=== PATIENT | male | born 1970 | race Caucasian/White ===

== ENCOUNTER 2019-07-08 05:39 | Outpatient (RCR) | payer BC ==
[~2019-07-08] VITALS: Ht 167.7 cm; Wt 54.5 kg
== END 2019-07-08 15:56 | disposition home or self-care (01) ==
LOC: PREOP 05:39
PROVIDERS: ATTEND Urology
DX: Z01.818 Encounter for other preprocedural examination (principal)

== ENCOUNTER 2019-07-14 07:41 | Day surgery (SDC) | payer BC ==
[2019-07-14] VITALS (17 sets, daily range): BP systolic 120–202; BP diastolic 68–125
[~2019-07-14] VITALS: Ht 167.7 cm; Wt 54.4 kg
--- NOTE | 2019-07-14 06:58 | Progress Note-Pre Operative ---
Pre-Operative Progress Note H&P Reviewed The H&P was reviewed, patient examined and no changes noted. Date Seen by Provider: Jul 14, 2019 Time Seen by Provider: 08:43 Date H&P Reviewed: Jul 14, 2019 Time H&P Reviewed: 08:43 Pre-Operative Diagnosis: BLADDER TUMOR (LARGE) NARCISA NO MD Jul 14, 2019 06:58
--- NOTE | 2019-07-14 07:09 | Progress Note-Post Operative ---
Post-Operative Progess Note Surgeon (s)/Airfreight Operations Agent (s) Surgeon NARCISA NO MD Airfreight Operations Agent: NONE Pre-Operative Diagnosis BLADDER TUMOR (LARGE) Post-Operative Diagnosis SAME Procedure & Operative Findings Date of Procedure 07/14/19 Procedure Performed/Findings TURBT Anesthesia Type GENERAL Estimated Blood Loss Estimated blood loss (mL): 100CC Specimens/Packing Specimens Removed BLADDER TUMOR AND BASE Packing: NONE NARCISA NO MD Jul 14, 2019 07:09
--- NOTE | 2019-07-14 07:11 | Discharge Inst-Urology ---
Discharge Inst-Urology Reconcile Patient Problems Problems Reviewed?: Yes Final Diagnosis Bladder tumor Patient Instructions/Follow Up Plan/Assessment/Instructions Camacho to CBI with sterile water to clear hand irrigate PRN. If urine remains clear after the present bag is done, DC Camacho and if patient voids well and no bleeding may discharge. Please make appointment to been seen in [place] office in 3 weeks. Rest for 72 hours Keep bowels soft and moving. Quit smoking Increase oral fluids for 72 hours and then as needed. May resume work On Tuesday 07/18 if doing well and no bleeding, no restrictions Diet as tolerated. If questions or concerns contact your physician Or seek help at emergency department. NARCISA NO MD Jul 14, 2019 07:11
--- OUTSIDE RECORDS SUMMARY | 2019-07-14 07:59 | XMS REPORT | Continuity of Care Document ---
Author Organization Unknown Address Unknown Phone Unavailable Allergies Active Description Code Type Severity Reaction Onset Reported/Identified Relationship to Patient Clinical Status Yes No Known Drug Allergies [id number] Drug Allergy Unknown N/A 07/08/2019 Medications There is no data. Problems Date Dx Coded Attending Type Code Diagnosis Diagnosed By 01/09/1555 ONEAL MEDRANO, NARCISA Carrillo Ot Z01.8 18 ENCOUNTER FOR OTHER PREPROCEDURAL EXAMIN Procedures There is no data. Results There is no data. Encounters ACCT No. Visit Date/Time Discharge Status Pt. Type Provider Facility Loc./Unit Complaint [id number] 07/08/2019 05:39:00 020 15:56:00 DIS Outpatient NARCISA NO MD Via [facility] PREOP BLADDER TUMOR [id number] 07/14/2019 10:30:00 P EN Preadmit NARCISA NO MD Via [facility] BLADDER TUMOR
[2019-07-14] MEDS ORDERED: cefTRIAXone FOR IV USE 1,000 MG in WATER (STERILE) FOR INJECTION 10 ML IV ONE (08:00)
[2019-07-14] MEDS: LACTATED RINGERS 1,000 ML IV PRN ×2 (08:04→10:36)
[2019-07-14] MEDS ORDERED: PHEN-640 PO (09:13)
[2019-07-14] MEDS ORDERED: SULF1TAB35 PO (09:13)
[2019-07-14] MEDS ORDERED: TRAM50TA3 PO (09:13)
[2019-07-14] MEDS ORDERED: fentaNYL INJECTION 100 MCG/2 ML AMP ONE ×3 (09:47→10:58)
[2019-07-14] MEDS ORDERED: MIDAZOLAM 2 MG/2 ML (VERSED) VIAL ONE (09:47)
[2019-07-14] MEDS ORDERED: SEVOFLURANE (ULTANE) 15 ML INHAL SOLN ONE ×4 (09:57)
[2019-07-14] MEDS ORDERED: DEXAMETHASONE 10 MG/ML (DECADRON) 1 ML VIAL ONE (09:57)
[2019-07-14] MEDS ORDERED: proPOfol 200 MG/20 ML (DIPRIVAN) VIAL IV ONE (09:57)
[2019-07-14] MEDS ORDERED: ONDANSETRON 4 MG/2 ML (SDV) Z0FRAN ONE (09:57)
[2019-07-14] MEDS ORDERED: LIDOCAINE PF 2% 5 ML (XYLOCAINE) VIAL ONE (09:57)
[2019-07-14] MEDS ORDERED: fentaNYL INJECTION 100 MCG/2 ML AMP IVP ONE (11:15)
[2019-07-14] MEDS ORDERED: morphine INJ 10 MG/ML 1ML (SYR OR VIAL) ONE (11:29)
[2019-07-14] MEDS ORDERED: BELLADONNA ALK/OPIUM (B & O) 30 MG SUPP PR ONE (11:30)
--- NOTE | 2019-07-14 12:49 | Anesthesia-General Post-Op ---
General Patient Condition Mental Status/LOC: Same as Preop Cardiovascular: Satisfactory Nausea/Vomiting: Absent Respiratory: Satisfactory Pain: Controlled Complications: Absent Post Op Complications Complications None Follow Up Care/Instructions Patient Instructions None needed. Anesthesia/Patient Condition Patient Condition Patient is doing well, no complaints, stable vital signs, no apparent adverse anesthesia problems. No complications reported per nursing. LEONA ARORA CRNA Jul 14, 2019 12:49
[2019-07-14] MEDS ORDERED: HYDROcodone/APAP 7.5 MG/325 MG (LORTAB, LORCET PLUS) TABLET PO ONE ×3 (13:00→15:59)
[2019-07-14] MEDS ORDERED: LIDOCAINE UROJET 2% GEL 10 ML PKG TOP ONE (13:00)
[2019-07-14] MEDS ORDERED: LIDOCAINE UROJET 2% GEL 10 ML PKG ONE (13:02)
--- NOTE | 2019-07-14 14:25 | NUR ---
JESSICA THORNTON admitted to room 411-1, with an admitting diagnosis of TUMOR RESECTION, on 07/14/19 from DAY SURG via CART, accompanied by STAFF.JESSICA THORNTON JR introduced to surroundings, call light, bed controls, phone, TV, temperature control, lights, meal times, smoking policy, visitor policy, side rail policy, bathrooms and showers. Patient Rights given to patient in the handbook.JESSICA THORNTON JR verbalizes understanding that [facility] is not responsible for the loss or damage to any personal effects or valuables that are kept in the patients posession during their hospitalization. The following Patient Care Plans were discussed with the PT: Discharge Planning, PAIN CONTROL,IV MEDS, and TESTS AND PROCEDURES. JESSICA THORNTON JR verbalizes understanding of Interdisciplinary Patient Education. Patient and/or family were informed about the Rapid Response Team and its purpose.
[2019-07-14] MEDS ORDERED: BELLADONNA ALK/OPIUM (B & O) 30 MG SUPP PR PRN (15:15)
--- NOTE | 2019-07-14 15:45 | NUR ---
[address] NO AND UPDATED HIM ON PATIENT'S STATUS. PATIENT HAD APPROXIMATELY 50CC URINE OUT, STRAWBERRY COLORED WITH CLOTS NOTED IN ISAAC TUBING. PATIENT PAIN 4/10 AFTER HYDROCODONE AND UROJET. PATIENT'S ABD SOFT, NONDISTENDED, NO TENDERNESS. RECEIVED ORDER TO KEEP PATIENT OVERNIGHT. TRANSFERRED PATIENT TO FOURTH FLOOR AND GAVE BEDSIDE REPORT TO OMARI TROY AT APPROXIMATELY 1545.
[2019-07-14] MEDS ORDERED: KETOROLAC 30 MG/ML VIAL ONE (15:58)
[2019-07-14] MEDS: HYDROcodone/APAP 7.5 MG/325 MG (LORTAB, LORCET PLUS) TABLET PO PRN ×2 (16:06→19:57)
[2019-07-14] MEDS: KETOROLAC 30 MG/ML VIAL IVP PRN (16:06)
[2019-07-14] MEDS: NICOTINE 21 MG (NICODERM) PATCH TD SCH (18:25)
--- NOTE | 2019-07-14 21:15 | OPERATIVE REPORT ---
DATE OF SERVICE: 07/14/2019 PREOPERATIVE DIAGNOSIS: Large bladder tumor. POSTOPERATIVE DIAGNOSIS: d Large bladder tumor. OPERATION PERFORMED: Transurethral resection of large bladder tumor. SURGEON: Narcisa No MD. ANESTHESIA: General. COMPLICATIONS: None. DESCRIPTION OF PROCEDURE: Under satisfactory general anesthesia and the patient in the lithotomy position, genitalia were prepped and draped in the usual sterile fashion. Urethra was dilated with Paige sound. It was noticed that the channel was kind of tight, but I was able to dilate to #28 to accommodate a 25-American resectoscope. Again, visualized the large bladder tumor on the left lateral side extending from inside the bladder neck proximally in the bladder. I could not see the left ureteral orifice whether hidden by it or behind it. I went ahead and resected all the tumor and base areas and cauterized all the bleeders. Resection was complete and hemostasis as well. It was hard to visualize the left ureteral orifice; however, there was spurting of urine from it and clear. During the procedure, at the beginning, the patient had an obturator reflex, but no harm was done at all, as the surgery proceeded as normal with no problem and the abdomen was soft and nondistended at the end of the procedure and warm. I elected to leave the catheter to run some CBI postoperatively to make sure he is okay before we let him go home, so I inserted a 20-American 3-way 5 mL balloon catheter in the bladder, inflated the balloon to 10 mL, connected to continuous bladder irrigation with sterile water, the return of which was crystal clear. Estimated blood loss was 100 mL, none of which was replaced. The patient tolerated the procedure and anesthesia well and was sent to recovery room in stable condition. Job ID: [id number] DocumentID: [id number] Dictated Date: 07/14/2019 10:52:27 Computer Game Designer Date: 07/14/2019 14:55:16 Dictated By: NARCISA NO MD
[2019-07-15 00:11] VITALS: BP 136/90
[2019-07-15] MEDS: KETOROLAC 30 MG/ML VIAL IVP PRN ×2 (00:30→11:55)
[2019-07-15] MEDS: HYDROcodone/APAP 7.5 MG/325 MG (LORTAB, LORCET PLUS) TABLET PO PRN ×3 (02:04→13:55)
[2019-07-15 04:28] VITALS: BP 127/82
--- NOTE | 2019-07-15 08:15 | NUR ---
IRRIGATED ISAAC CATHETER WITH CLOTS PRESENT. PT REPORTS RELIEF OF DISCOMFORT.
[2019-07-15 08:19] VITALS: BP 129/86
[2019-07-15] MEDS: NICOTINE 21 MG (NICODERM) PATCH TD SCH (08:27)
[2019-07-15] MEDS ORDERED: NICOTINE PATCH REMOVAL TP SCH (08:59)
--- NOTE | 2019-07-15 11:39 | Progress Note - Urology ---
Progress Note-Urology Progress Notes/Assess & Plan Progress/Assessment & Plan FEELING MUCH BETTER. URINE TINGED ON SLOW CBI DRIP. PLAN DC ISAAC AND MANAGE ACCORDINGLY Final Diagnosis LARGE BLADDER TUMOR NARCISA NO MD Jul 15, 2019 11:39
--- NOTE | 2019-07-15 11:55 | NUR ---
CATHETER DRAINING CLEAR LIGHT PINK URINE. ISAAC WAS D/C PER ORDERS. PT INSTRUCTED ON 3 GLASS TEST AND VERBALIZED UNDERSTANDING.
[2019-07-15 12:25] VITALS: BP 133/84
[2019-07-15 16:39] VITALS: BP 170/100
--- NOTE | 2019-07-15 17:00 | NUR ---
1645- PT COMPLETED 3 GLASS TEST. PT HAD 10CC, 90CC, 160CC WITH COLOR CONSISTENTLY DARKER RED. PT DENIES ANY DISCOMFORT OF BLADDER DISTENTION. 1700 DR NO NOTIFIED RESULTS OF THE 3 GLASS TEST. PT REQUESTING TO D/C. PT OKAY TO DISCHARGE PER ORDERS, GAVE STRICT ORDER TO KEEP PUSHING ORAL FLUIDS UNTIL URINE IS CLEAR. PT IS TO RETURN TO ED IF UNABLE TO URINATE. PT VERBALIZED UNDERSTANDING. NOTIFIED OF BP. 1715 PT URINATED 260 OF RED COLORED URINE.
== END 2019-07-15 17:54 | disposition home or self-care (01) ==
LOC: SDC 07:41 → 4TH 15:40 → SDC 07-15 17:54
PROVIDERS: ATTEND Urology
DX: C67.9 Malignant neoplasm of bladder, unspecified (principal); F17.210 Nicotine dependence, cigarettes, uncomplicated; Z88.5 Allergy status to narcotic agent
CPT/HCPCS: 87081; 88307

== ENCOUNTER 2019-07-16 10:56 | Inpatient (IN) | payer BC ==
[~2019-07-16] VITALS: Ht 167 cm; Wt 58.5 kg
[~2019-07-16 10:56] MED LIST: PHEN-640 PO; SULF1TAB35 PO; TRAM50TA3 PO
[2019-07-16] MEDS ORDERED: LIDOCAINE UROJET 2% GEL 10 ML PKG ONE (11:17)
[2019-07-16] MEDS ORDERED: fentaNYL INJECTION 100 MCG/2 ML AMP ONE (11:28)
[2019-07-16] MEDS ORDERED: fentaNYL INJECTION 100 MCG/2 ML AMP IVP ONE (11:30)
[2019-07-16] MEDS ORDERED: LIDOCAINE UROJET 2% GEL 10 ML PKG TOP ONE (11:30)
[2019-07-16 11:33] LABS: BASOPHILS % (AUTO) 0 % (0-10); EOSINOPHILS % (AUTO) 0 % (0-10); HEMATOCRIT 32 % (40-54); LYMPHOCYTES # (AUTO) 2.2 X 10^3 (1.0-4.0); LYMPHOCYTES % (AUTO) 9 % (12-44); MEAN CORPUSCULAR HEMOGLOBIN 31 PG (25-34); MEAN CORPUSCULAR HGB CONC 35 G/DL (32-36); MEAN CORPUSCULAR VOLUME 89 FL (80-99); MEAN PLATELET VOLUME 10.2 FL (7.4-10.4); MONOCYTES # (AUTO) 1.8 X 10^3 (0.0-1.0); MONOCYTES % (AUTO) 8 % (0-12); NEUTROPHILS % (AUTO) 83 % (42-75); PLATELET COUNT 238 10^3/uL (130-400); RED CELL DISTRIBUTION WIDTH 13.7 % (10.0-14.5)
--- NOTE | 2019-07-16 11:33 | ED Abdominal Pain ---
General Chief Complaint: Abdominal/GI Problems Stated Complaint: ABD PAIN Nursing Triage Note: Bladder tumor removed 07/13, given the option to stay overnight but declined. Now having urinary retention with abdominal pain /. Unable to void since last night. Sepsis Screen: No Definite Risk Source of Information: Patient Exam Limitations: No Limitations History of Present Illness Date Seen by Provider: Jul 16, 2019 Time Seen by Provider: 11:31 Initial Comments ER with sudden onset urinary retention. He feels the need to urinate but is unable to do so, he states that when he has urinated early this morning it was very painful. He had a transurethral resection of bladder tumor 2 days ago here. Timing/Duration: 4-6 Hours Severity/Quality: Severe Location: Suprapubic Radiation: No Radiation Activities at Onset: None Associated Symptoms: Denies Symptoms Allergies and Home Medications Allergies Coded Allergies: No Known Drug Allergies (Unverified , 07/08/19) Home Medications Phenazopyridine HCl 200 Mg Tablet, 1 TAB PO TID PRN for BLADDER SPASMS Prescribed by: MANJU ERIC on 07/14/19912 Sulfamethoxazole/Trimethoprim 1 Each Tablet, 1 EACH PO BID Prescribed by: MANJU ERIC on 07/14/19912 Tramadol HCl 50 Mg Tablet, 50-100 MG PO Q4H Prescribed by: MANJU ERIC on 07/14/19912 Patient Home Medication List Home Medication List Reviewed: Yes Review of Systems Review of Systems Constitutional: see HPI EENTM: No Symptoms Reported Respiratory: No Symptoms Reported Gastrointestinal: See HPI, Abdominal Pain Genitourinary: See HPI, Pain Musculoskeletal: no symptoms reported Skin: no symptoms reported Psychiatric/Neurological: No Symptoms Reported Endocrine: No Symptoms Reported Hematologic/Lymphatic: No Symptoms Reported Past Tumjoeb-Gclfvt-Ybacug Hx Patient Social History Alcohol Use: Regular Use Number of Drinks Today: 0 Alcohol Beverage of Choice: Beer Recreational Drug Use: No Smoking Status: Current Everyday Smoker Type Used: Cigarettes 2nd Hand Smoke Exposure: Yes Recent Foreign Travel: No Contact w/Someone Who Travel: No Recent Infectious Disease Expo: No Recent Hopitalizations: Yes (bladder tumor removed 07/13) Physical Abuse: No Sexual Abuse: No Mistreated: No Fear: No Seasonal Allergies Seasonal Allergies: Yes Past Medical History Surgeries: Yes (L knee scope, bilat CTR, bilat ulnar nervesx, L shoulder) Respiratory: No Cardiac: No Neurological: No Genitourinary: Yes (bladder tumor 07/14/19 RESECTION OF BLADDER TUMOR)) Gastrointestinal: No Musculoskeletal: No Endocrine: No HEENT: No Cancer: No Psychosocial: No Integumentary: No Blood Disorders: No Physical Exam Vital Signs Vital Signs - First Documented 07/16/19 11:10 Temp 37.2 Pulse 110 Resp 18 B/P (MAP) 126/90 (102) Pulse Ox 99 O2 Delivery Room Air Capillary Refill : Less Than 3 Seconds Height/Weight/BMI Height: '" Weight: lbs. oz. kg; 21.00 BMI Method: General Appearance: WD/WN, no apparent distress Respiratory: no respiratory distress, no accessory muscle use Cardiovascular: regular rate, rhythm, no murmur Gastrointestinal: normal bowel sounds, soft Extremities: normal range of motion, non-tender Neurologic/Psychiatric: alert, normal mood/affect, oriented x 3 Skin: normal color, warm/dry Focused Exam Lactate Level 07/16/19 12:27: Lactic Acid Level 0.70 Lactic Acid Level Laboratory Tests Test 07/16/19 12:27 Lactic Acid Level 0.70 MMOL/L (0.50-2.00) Progress/Results/Core Measures Results/Orders Lab Results Laboratory Tests Test 07/16/19 11:23 07/16/19 11:55 07/16/19 12:27 Range/Units White Blood Count 24.0 H 4.3-11.0 10^3/uL Red Blood Count 3.58 L 4.35-5.85 10^6/uL Hemoglobin 11.0 L 13.3-17.7 G/DL Hematocrit 32 L 40-54 % Mean Corpuscular Volume 89 80-99 FL Mean Corpuscular Hemoglobin 31 25-34 PG Mean Corpuscular Hemoglobin Concent 35 32-36 G/DL Red Cell Distribution Width 13.7 10.0-14.5 % Platelet Count 238 130-400 10^3/uL Mean Platelet Volume 10.2 7.4-10.4 FL Neutrophils (%) (Auto) 83 H 42-75 % Lymphocytes (%) (Auto) 9 L 12-44 % Monocytes (%) (Auto) 8 0-12 % Eosinophils (%) (Auto) 0 0-10 % Basophils (%) (Auto) 0 0-10 % Neutrophils # (Auto) 20.0 H 1.8-7.8 X 10^3 Lymphocytes # (Auto) 2.2 1.0-4.0 X 10^3 Monocytes # (Auto) 1.8 H 0.0-1.0 X 10^3 Eosinophils # (Auto) 0.0 0.0-0.3 10^3/uL Basophils # (Auto) 0.0 0.0-0.1 10^3/uL Neutrophils % (Manual) 83 % Lymphocytes % (Manual) 13 % Monocytes % (Manual) 4 % Blood Morphology Comment NORMAL Sodium Level 135 135-145 MMOL/L Potassium Level 4.0 3.6-5.0 MMOL/L Chloride Level 101 98-107 MMOL/L Carbon Dioxide Level 25 21-32 MMOL/L Anion Gap 9 5-14 MMOL/L Blood Urea Nitrogen 30 H 7-18 MG/DL Creatinine 2.22 H 0.60-1.30 MG/DL Estimat Glomerular Filtration Rate 32 BUN/Creatinine Ratio 14 Glucose Level 110 H 70-105 MG/DL Calcium Level 8.8 8.5-10.1 MG/DL Urine Color SPEEDY H Urine Clarity CLEAR Urine pH 6.5 5-9 Urine Specific [place] <=1.005 1.016-1.022 Urine Protein 3+ H NEGATIVE Urine Glucose (UA) NEGATIVE NEGATIVE Urine Ketones NEGATIVE NEGATIVE Urine Nitrite NEGATIVE NEGATIVE Urine Bilirubin 1+ H NEGATIVE Urine Urobilinogen 0.2 < = 1.0 MG/DL Urine Leukocyte Esterase 3+ H NEGATIVE Urine RBC (Auto) 3+ H NEGATIVE Urine RBC 50-100 H /HPF Urine WBC 50-100 H /HPF Urine Squamous Epithelial Cells NONE /HPF Urine Crystals PRESENT H /LPF Urine Amorphous Sediment MOD ENRIQUETA URATES H /LPF Urine Bacteria FEW H /HPF Urine Casts NONE /LPF Urine Mucus MODERATE H /LPF Urine Culture Indicated YES Lactic Acid Level 0.70 0.50-2.00 MMOL/L My Orders Orders - MARCELINA SHEFFIELD PIANO TECHNICIAN Lidocaine 2% (Urojet) (Xylocaine Urojet) (07/16/19 11:30) Cbc With Automated Diff (07/16/19 11:18) Basic Metabolic Panel (07/16/19 11:18) Ua Culture If Indicated (07/16/19 11:18) Lidocaine 2% (Urojet) (Xylocaine Urojet) (07/16/19 11:17) Fentanyl Injection (Sublimaze Injection (07/16/19 11:30) Fentanyl Injection (Sublimaze Injection (07/16/19 11:28) Manual Differential (07/16/19 11:23) Urine Culture (07/16/19 11:55) Blood Culture (07/16/19 12:18) Lactic Acid Analyzer (07/16/19 12:18) Ct Abdomen/Pelvis Wo (07/16/19 12:18) Ceftriaxone For Iv Use (Rocephin For I (07/16/19 12:30) Ns Iv 1000 Ml (Sodium Chloride 0.9%) (07/16/19 12:30) Continuous Bladder Irrigation (07/16/19 12:24) Medications Given in ED Current Medications Medications Dose Ordered Sig/Kym Route Start Time Stop Time Status Last Admin Dose Admin Ceftriaxone Sodium 1000 mg/ Sterile Water 10 ml @ 200 mls/hr ONCE ONCE IV 07/16/19 12:30 07/16/19 12:32 DC 07/16/19 12:36 200 MLS/HR Fentanyl Citrate 50 mcg ONCE ONCE IVP 07/16/19 11:30 07/16/19 11:31 DC 07/16/19 11:46 50 MCG Lidocaine HCl 10 ml STK-MED ONCE .ROUTE 07/16/19 11:17 07/16/19 11:20 DC 07/16/19 11:45 10 ML Vital Signs/I&O 07/16/19 07/16/19 07/16/19 07/16/19 11:10 11:46 12:45 13:52 Temp 37.2 37.2 Pulse 110 99 95 Resp 18 16 16 B/P (MAP) 126/90 (102) 142/98 142/98 Pulse Ox 99 99 100 O2 Delivery Room Air Room Air Room Air Blood Pressure Mean: 102 Diagnostic Imaging Diagonstic Imaging: CT Plain Films/CT/US/NM/MRI: abdomen, pelvis Comments NAME: JESSICA THORNTON MED REC#: [id number] PT STATUS: REG ER : 1970 PHYSICIAN: MARCELINA SHEFFIELD APRN ADMIT DATE: 07/16/19/ER Draft Date of Exam:07/16/19 CT ABDOMEN/PELVIS WO PROCEDURE: CT abdomen and pelvis without contrast. TECHNIQUE: Multiple contiguous axial images were obtained through the abdomen and pelvis without the use of intravenous contrast. Auto Exposure Controls were utilized during the CT exam to meet ALARA standards for radiation dose reduction. INDICATION: Pain. FINDINGS: Urinary bladder is catheterized by a Camacho. There is intraluminal hyperdensity within the urinary bladder at its base, presumed blood. There is no hydroureteronephrosis. There is some questionable thickening of the cano of the left renal pelvis and ureter. Correlate for urinary tract infection. No perinephric fluid collection and no radiodense stone is found. There is no bowel, biliary, or urinary tract obstruction. Liver, spleen, adrenals, and pancreas are negative. The gallbladder is negative. IMPRESSION: 1. Presumed blood within the lumen of the catheterized urinary bladder. Questionable thickening of the left renal urothelium but no hydronephrosis or stone. 2. Remaining solid and hollow viscera normal. Dictated on workstation # [id number] Dict: 07/16/19 1346 Trans: 07/16/19 1357 [id number] Interpreted by: JESSI MEDINA Electronically signed by: Departure Communication (Admissions) Time/Spoke to Admitting Phy: 14:16 1417-spoke with Dr. Tapia, we will admit continue bladder irrigation using s terile water instead of saline, Rocephin andiv fluids Impression Primary Impression: Bladder tumor Additional Impressions: Urinary retention Hematuria Urinary tract infection Disposition: ADMITTED INPATIENT Condition: Stable Admissions Decision to Admit Reason: Admit from ER (General) Decision to Admit/Date: Jul 16, 2019 Time/Decision to Admit Time: 14:19 Departure-Patient Inst. Referrals: NO,LOCAL PHYSICIAN (PCP) Primary Care Physician MARCELINA SHEFFIELD PIANO TECHNICIAN Jul 16, 2019 11:33
[2019-07-16 11:51] LABS: LYMPHOCYTES % (MANUAL) 13 %; MONOCYTES % (MANUAL) 4 %; NEUTROPHILS % (MANUAL) 83 %; RBC MORPH NORMAL
[2019-07-16 11:54] LABS: CALCIUM 8.8 MG/DL (8.5-10.1); CREATININE SERUM 2.22 MG/DL (0.60-1.30)
[2019-07-16 12:00] LABS: BILIRUBIN,URINE 1+ (NEGATIVE); CLARITY,URINE CLEAR; COLOR,URINE AMBER; GLUCOSE, URINE (UA) NEGATIVE (NEGATIVE); KETONES,URINE NEGATIVE (NEGATIVE); LEUKOCYTE ESTERASE ,URINE 3+ (NEGATIVE); NITRITE,URINE NEGATIVE (NEGATIVE); PH,URINE 6.5 (5-9); PROTEIN,URINE 3+ (NEGATIVE)
[2019-07-16 12:14] LABS: AMORPHOUS SEDIMENT,UR MOD AMOR URATES /LPF; BACTERIA,URINE FEW /HPF; RBC,URINE 50-100 /HPF; WBC,URINE 50-100 /HPF
[2019-07-16] MEDS ORDERED: cefTRIAXone FOR IV USE 1,000 MG in WATER (STERILE) FOR INJECTION 10 ML IV ONE (12:30)
[2019-07-16] MEDS ORDERED: NS IV 1000 ML 1,000 ML IV SCH (12:30)
--- NOTE | 2019-07-16 13:57 | NUR ---
2nd CBI bag applied; per MD can be run slower than 1st bag. Urine is clear elida in color with no clots, draining freely.
--- NOTE | 2019-07-16 13:58 | Diagnostic Imaging Report ---
PROCEDURE: CT abdomen and pelvis without contrast. TECHNIQUE: Multiple contiguous axial images were obtained through the abdomen and pelvis without the use of intravenous contrast. Auto Exposure Controls were utilized during the CT exam to meet ALARA standards for radiation dose reduction. INDICATION: Pain. FINDINGS: Urinary bladder is catheterized by a Camacho. There is intraluminal hyperdensity within the urinary bladder at its base, presumed blood. There is no hydroureteronephrosis. There is some questionable thickening of the cano of the left renal pelvis and ureter. Correlate for urinary tract infection. No perinephric fluid collection and no radiodense stone is found. There is no bowel, biliary, or urinary tract obstruction. Liver, spleen, adrenals, and pancreas are negative. The gallbladder is negative. IMPRESSION: 1. Presumed blood within the lumen of the catheterized urinary bladder. Questionable thickening of the left renal urothelium but no hydronephrosis or stone. 2. Remaining solid and hollow viscera normal. Dictated by: Dictated on workstation # [id number]
[2019-07-16 14:55] VITALS: BP 139/87
--- OUTSIDE RECORDS SUMMARY | 2019-07-16 15:13 | XMS REPORT | Continuity of Care Document ---
Author Organization Unknown Address Unknown Phone Unavailable Allergies Active Description Code Type Severity Reaction Onset Reported/Identified Relationship to Patient Clinical Status Yes No Known Drug Allergies [id number] Drug Allergy Unknown N/A 07/08/2019 Medications There is no data. Problems Date Dx Coded Attending Type Code Diagnosis Diagnosed By 01/09/1555 NARCISA NO MD Ot Z01.8 18 ENCOUNTER FOR OTHER PREPROCEDURAL EXAMIN 07/08/2019 NARCISA NO MD Ot Z01.8 18 ENCOUNTER FOR OTHER PREPROCEDURAL EXAMIN Procedures There is no data. Results Test Result Range Methicillin resistant Staphylococcus aur eus (MRSA) screening culture - 07/14/19 08:05 Methicillin resistant Staphylococcus aureus (MRSA) scr eening culture NEG NRG Encounters ACCT No. Visit Date/Time Discharge Status Pt. Type Provider Facility Loc./Unit Complaint [id number] 07/14/2019 07:41:00 020 17:54:00 DIS Outpatient NARCISA NO MD Via [facility] SDC BLADDER TUMOR [id number] 07/08/2019 05:39:00 020 15:56:00 DIS Outpatient NARCISA NO MD [facility] PREOP BLADDER TUMOR [id number] 07/16/2019 10:57:[address] Emergency MARCELINA SHEFFIELD APRN [facility] ER ABD PAIN
[2019-07-16 15:43] VITALS: BP 132/70
[2019-07-16] MEDS: BELLADONNA ALK/OPIUM (B & O) 30 MG SUPP PR PRN ×2 (16:02→22:17)
[2019-07-16] MEDS: LACTATED RINGERS 1,000 ML IV SCH (16:02)
[2019-07-16] MEDS: ONDANSETRON 4 MG/2 ML (SDV) Z0FRAN IV PRN ×2 (16:09→22:50)
--- OUTSIDE RECORDS SUMMARY | 2019-07-16 16:15 | XMS REPORT | Continuity of Care Document ---
Author Organization Unknown Address Unknown Phone Unavailable Allergies Active Description Code Type Severity Reaction Onset Reported/Identified Relationship to Patient Clinical Status Yes No Known Drug Allergies [id number] Drug Allergy Unknown N/A 07/08/2019 Medications There [...] Status Pt. Type Provider Facility Loc./Unit Complaint [id number] 07/14/2019 07:41:00 020 17:54:00 DIS Outpatient NARCISA NO MD Via [facility] SDC BLADDER TUMOR [id number] 07/08/2019 05:39:00 020 15:56:00 DIS Outpatient NARCISA NO MD [facility] PREOP BLADDER TUMOR [id number] 07/16/2019 10:57:[address] Emergency MARCEILNA SHEFFIELD APRN [facility] ER ABD PAIN
[2019-07-16] MEDS: fentaNYL INJECTION 100 MCG/2 ML AMP IV PRN ×2 (16:27→22:51)
[2019-07-16 19:59] VITALS: BP 116/70
[2019-07-17] VITALS: BP 108/70
[2019-07-17] MEDS: LACTATED RINGERS 1,000 ML IV SCH ×2 (00:05→07:39)
--- NOTE | 2019-07-17 00:49 | HISTORY AND PHYSICAL ---
DATE OF SERVICE: ADMISSION HISTORY AND PHYSICAL DATE OF ADMISSION: 07/16/2019. CHIEF COMPLAINT: Gross hematuria with clot retention. HISTORY: A 48-year-old white man who underwent a transurethral resection of the large bladder tumor on 07/14/2019. Yesterday, he insisted to go home, although we wanted to keep him since the urine was still bloody and make sure he voids okay, but apparently his had to have surgery this morning, which apparently was mess up. He presented to the emergency room with clot retention and distended bladder. His white count was 24,000, H and H 11 and 32, creatinine 2.2. EGFR 32. Lactic acid normal. He underwent a CT scan of the abdomen and pelvis, which showed no hydronephrosis, no abnormalities otherwise except for some blood in the bladder, which is expected. A Camacho catheter 3-way was inserted in the ER. CBI was initiated with good results of clearing of the urine, which continued to remain clear. The patient is feeling much better. No pain, no discomfort except for a little bit from the catheter. The rest of his history and physical as preoperatively. IMPRESSION: 1. Gross hematuria with clot retention post TURBT. 2. Acute renal insufficiency secondary to above. PLAN: CBI. We will recheck his CBC and comprehensive in the morning and we will manage accordingly and according to the urine changes. The plan was fully explained to the patient. Job ID: [id number] DocumentID: [id number] Dictated Date: 07/16/2019 21:28:14 Floor Worker [employer] Date: 07/17/2019 00:49:25 Dictated By: NARCISA NO MD
[2019-07-17 04:20] VITALS: BP 128/79
[2019-07-17 05:54] LABS: BASOPHILS % (AUTO) 0 % (0-10); EOSINOPHILS % (AUTO) 0 % (0-10); HEMATOCRIT 27 % (40-54); HEMOGLOBIN 9.1 G/DL (13.3-17.7); LYMPHOCYTES # (AUTO) 2.7 X 10^3 (1.0-4.0); LYMPHOCYTES % (AUTO) 14 % (12-44); MEAN CORPUSCULAR HEMOGLOBIN 31 PG (25-34); MEAN CORPUSCULAR HGB CONC 34 G/DL (32-36); MEAN CORPUSCULAR VOLUME 91 FL (80-99); MEAN PLATELET VOLUME 10.5 FL (7.4-10.4); MONOCYTES # (AUTO) 2.1 X 10^3 (0.0-1.0); MONOCYTES % (AUTO) 11 % (0-12); NEUTROPHILS # (AUTO) 14.7 X 10^3 (1.8-7.8); NEUTROPHILS % (AUTO) 75 % (42-75); PLATELET COUNT 218 10^3/uL (130-400); RED CELL DISTRIBUTION WIDTH 14.1 % (10.0-14.5); WHITE BLOOD COUNT 19.6 10^3/uL (4.3-11.0)
[2019-07-17 06:14] LABS: ALBUMIN 3.4 GM/DL (3.2-4.5); POTASSIUM 4.2 MMOL/L (3.6-5.0)
[2019-07-17 06:15] LABS: CALCIUM 8.7 MG/DL (8.5-10.1)
[2019-07-17 06:16] LABS: TOTAL PROTEIN 5.9 GM/DL (6.4-8.2)
[2019-07-17 06:18] LABS: BILIRUBIN,TOTAL 0.7 MG/DL (0.1-1.0)
[2019-07-17 06:20] LABS: CREATININE SERUM 1.29 MG/DL (0.60-1.30)
[2019-07-17 08:00] VITALS: BP 124/74
[2019-07-17] MEDS: fentaNYL INJECTION 100 MCG/2 ML AMP IV PRN ×2 (08:18→10:42)
[2019-07-17] MEDS ORDERED: DOCUSATE SODIUM 100 MG (COLACE) CAP PO SCH (09:00)
[2019-07-17] MEDS: ONDANSETRON 4 MG/2 ML (SDV) Z0FRAN IV PRN (10:42)
[2019-07-17] MEDS: BELLADONNA ALK/OPIUM (B & O) 30 MG SUPP PR PRN (10:42)
--- NOTE | 2019-07-17 10:45 | Progress Note - Urology ---
Progress Note-Urology Progress Notes/Assess & Plan Progress/Assessment & Plan DOING AND FEELING BETTER. NO COMPLAINTS. URINE CLEAR ON CBI. LABS IMPROVED. PLAN DC CBI, START FESO4, RECHECK LABS TOMORROW AM AND DC ISAAC THEN IF URINE STAYS CLEAR OFF CBI. PLAN FULLY EXPLAINED TO PATIENT Final Diagnosis GROSS HEMATURIA WITH CLOT RETENTION NARCISA NO MD Jul 17, 2019 10:45
--- NOTE | 2019-07-17 10:56 | NUR ---
GEO CHACON'Teo AT THIS TIME PER DR ALBERT
[2019-07-17 12:00] VITALS: BP 106/66
[2019-07-17] MEDS ORDERED: cefTRIAXone 1,000 MG/SWFI 10 ML IV PUSH IV SCH ×2 (12:30)
--- NOTE | 2019-07-17 14:00 | NUR ---
PT NOTIFIED THIS RN THAT HE WANTS TO LEAVE THE HOSPITAL. HE STATED "I CANNOT SPEND ANOTHER MINUTE HERE." THIS RN DISCUSSED THE BENEFITS OF ADMISSION AND FOLLOWING DR'S ORDERS AND THE RISKS OF LEAVING AMA. PT INSISTED HE WAS LEAVING. DR NO NOTIFIED BY THIS RN. IV AND ISAAC REMOVED BY THIS RN. PT LEFT FLOOR VIA WALKING.
[2019-07-17] MEDS ORDERED: FERROUS SULF 325 MG (IRON) TAB PO SCH (18:00)
== END 2019-07-17 14:20 | disposition left against medical advice (07) | DRG 700 ==
LOC: EDUNIT# 10:56 → ER 10:57 → 4TH 14:07
PROVIDERS: ADMIT Urology; ATTEND Urology
DX: N32.89 Other specified disorders of bladder (principal); R31.0 Gross hematuria; R33.9 Retention of urine, unspecified; N28.9 Disorder of kidney and ureter, unspecified; F17.210 Nicotine dependence, cigarettes, uncomplicated
CPT/HCPCS: 36415; 51702; 74176; 80048; 80053; 81000; 83605; 85007; 85025; 85027; 87040; 87088; 96365; 96375